=== PATIENT | female | born 1945 | race Caucasian/White ===

== ENCOUNTER 2017-01-29 14:40 | Emergency (ER) | payer MEDICARE ==
[~2017-01-29] VITALS: Ht 152.4 cm; Wt 96.9 kg
[2017-01-29] MEDS ORDERED: SODIUM CHLORIDE 0.9% 1,000 ML IV ONE (15:07)
[2017-01-29] MEDS ORDERED: MORPHINE SULFATE 4 MG/ML, 1ML IVPush PRN (15:30)
[2017-01-29] MEDS ORDERED: FAMOTIDINE 20 MG/2 ML IVP ONE (15:30)
[2017-01-29] MEDS ORDERED: ONDANSETRON 2MG/ML, 2ML IVPush ONE (15:30)
[2017-01-29 15:33] LABS: ASPARTATE AMINO TRANSFERASE 18 U/L (15-37); BLOOD UREA NITROGEN 14 mg/dL (7-18)
[2017-01-29] MEDS ORDERED: ONDANSETRON 2MG/ML, 2ML ONE (15:50)
[2017-01-29] MEDS ORDERED: MORPHINE SULFATE 4 MG/ML, 1ML ONE (15:50)
[2017-01-29] MEDS ORDERED: FAMOTIDINE 20 MG/2 ML ONE (15:50)
[2017-01-29 17:19] VITALS: BP 160/81
== END 2017-01-29 17:24 | disposition home or self-care (01) ==
LOC: ED 16:58
DX: K57.30 Diverticulosis of large intestine without perforation or abscess without bleeding (principal); E27.9 Disorder of adrenal gland, unspecified; I10 Essential (primary) hypertension
CPT/HCPCS: 36415; 74177; 80053; 81001; 83605; 83690; 85025; 85610; 87086; 93005; 96374; 96375; 99285; J2405; J7030; S0028